=== PATIENT | male | born 1990 | race American Indian/Alaskan Native ===

== ENCOUNTER 2017-01-25 14:52 | Emergency (ER) | payer OTHER ==
[2017-01-25 15:01] VITALS: BP 142/90
[2017-01-25 16:17] LABS: Bilirubin,Urine NEG (Negative); Blood,Urine NEG (Negative); Ketones,Urine NEG (Negative); Leukocyte Esterase,Urine LG (Negative); Mucus,Urine FEW /HPF; Nitrite,Urine NEG (Negative); Protein,Urine <15 mg/dL mg/dL (Negative); Urobilinogen,Urine < 2.0 mg/dL (<2.0)
[2017-01-25 16:19] LABS: WBC,Urine > 182.0 /HPF (0.0-6.0)
[2017-01-25] MEDS ORDERED: XYLOCAINE 1% MPF 5 mL INFILTRATI ONE (17:33)
[2017-01-25] MEDS ORDERED: ROCEPHIN IM ONE (17:33)
[2017-01-25] MEDS ORDERED: ZITHROMAX PO ONE (17:33)
--- NOTE | 2017-01-25 17:59 | Emergency Department Report ---
Entered by JOSIAS LACKEY, acting as scribe for NATY JONES NP. ED Male HPI - General Chief complaint: Urogenital-Male Stated complaint: STD TESTING Time Seen by Provider: 01/25/17 17:28 Source: patient Mode of arrival: Ambulatory Limitations: No Limitations - History of Present Illness Initial comments: Patient is a 26 y.o. male who presents to the ED for evaluation of a two day hx of persistent, yellowish penile discharge with associated dysuria. Patient denies fever, chills, sore throat, abdominal pain, or N/V. He additionally reports recent unprotected sex. MD Complaint: penile discharge, dysuria -: days(s) (four day hx) Location: penis Radiation: none Severity scale (0 -10): 5 Consistency: constant Improves with: none Worsens with: urination discharge (penile discharge), dysuria. denies: swelling, mass, rash, urinary retention, blood in urine, fever, nausea/vomiting, incontinence - Related Data Sexually active: Yes (hx of recent unprotected sex) Allergies Allergy/AdvReac Type Severity Reaction Status Date / Time No Known Allergies Allergy Unverified 01/25/17 15:02 ED Review of Systems Comment: All other systems reviewed and negative Constitutional: denies: chills, diaphoresis, fever, malaise Eyes: denies: eye pain, vision change ENT: denies: ear pain, throat pain Respiratory: denies: cough, shortness of breath, wheezing Cardiovascular: denies: chest pain, palpitations Gastrointestinal: denies: abdominal pain, nausea, vomiting, diarrhea, constipation, melena Genitourinary: dysuria, discharge (penile discharge). denies: urgency, frequency, hematuria, testicular pain, testicular mass Musculoskeletal: denies: back pain, joint swelling, arthralgia, myalgia Skin: denies: rash, lesions, change in color, pruritus Neurological: denies: headache, weakness, paresthesias, abnormal gait Psychiatric: denies: anxiety, depression ED Past Medical Hx - Past Medical History Previous Medical History?: No - Surgical History Past Surgical History?: No - Social History Smoking Status: Current Every Day Smoker Substance Use Type: Alcohol ED Physical Exam - General Limitations: No Limitations General appearance: alert, in no apparent distress - Head Head exam: Present: atraumatic, normocephalic, normal inspection - Eye Eye exam: Present: normal appearance, PERRL, EOMI. Absent: scleral icterus, conjunctival injection Pupils: Present: normal accommodation - ENT ENT exam: Present: normal exam, normal orophraynx, mucous membranes moist, TM's normal bilaterally, normal external ear exam, other (Mouth: Moist, no pharyngeal exudate or erythema. Uvula is midline and oral airway is patent. No facial swelling. No peritonsillar abscesses.) - Neck Neck exam: Present: normal inspection, full ROM. Absent: tenderness, meningismus, lymphadenopathy, thyromegaly - Respiratory Respiratory exam: Present: normal lung sounds bilaterally (CTAB. Normal work of breathing.). Absent: respiratory distress, wheezes, rales, rhonchi, accessory muscle use - Cardiovascular Cardiovascular Exam: Present: regular rate, normal rhythm, normal heart sounds. Absent: systolic murmur, diastolic murmur, rubs, gallop - GI/Abdominal GI/Abdominal exam: Present: soft. Absent: distended, tenderness, guarding, rebound, rigid - Rectal Rectal exam: Present: deferred - exam: Present: other (deferred) - Extremities Exam Extremities exam: Present: normal inspection, full ROM, normal capillary refill. Absent: tenderness - Back Exam Back exam: Present: normal inspection. Absent: CVA tenderness (R), CVA tenderness (L) - Neurological Exam Neurological exam: Present: alert, oriented X3, normal gait - Psychiatric Psychiatric exam: Present: normal affect, normal mood - Skin Skin exam: Present: warm, dry, intact, normal color. Absent: rash, cyanosis, diaphoretic ED Course Vital Signs 01/25/17 14:59 Temperature 98.6 F Pulse Rate 95 H Respiratory 18 Rate Blood Pressure 142/90 O2 Sat by Pulse 100 Oximetry - Reevaluation(s) Reevaluation #1: 01/25/17 17:55 PT aware of UA results. PT treated empirically for gc and ct while in ED. PT aware of dx and need for follow up with PCP and further STD testing. PT has no questions at this time. PT advised to refrain from sexual activity at this time. - Pulse Oximetry Interpretation Digit-Finger Initial Pulse Oximetry Readin Actions Taken: none ED Medical Decision Making - Differential Diagnosis gc, ct Critical Care Time: No ED Disposition Clinical Impression: Penile discharge, Risky sexual behavior Disposition: DC-01 TO HOME OR SELFCARE Is pt being admited?: No Does the pt Need Aspirin: No Condition: Stable Instructions: Chlamydia Infection (ED), Sexually Transmitted Diseases (ED), Safe Sex (ED), Sexually Transmitted Diseases in Adolescents (ED) Additional Instructions: No sex for the next 7 days Your sexual partners will need testing/ treatment Follow up with PCP or health dept for full panel STD testing Repeat your BP on follow up Referrals: [facility] [Outside] - 3-5 Days [facility] [Outside] - 3-5 Days MATILDE LOMBARDI MD [Staff Physician] - 3-5 Days Time of Disposition: 17:59 This documentation as recorded by the leslieibZIYAD landers KELLY,accurately reflects the service I personally performed and the decisions made by ,NATY JONES , [employer] PULLER.
== END 2017-01-25 18:14 | disposition home or self-care (01) ==
LOC: ED 14:52
DX: R36.9 Urethral discharge, unspecified (principal); F17.200 Nicotine dependence, unspecified, uncomplicated
CPT/HCPCS: 81001; 87591; 96372; 99283; J0696

== ENCOUNTER 2017-02-22 21:59 | Emergency (ER) | payer OTHER ==
[2017-02-22 22:45] VITALS: BP 143/85
== END 2017-02-22 23:00 | disposition left against medical advice (07) ==
LOC: ED 21:59
DX: Z53.21 Procedure and treatment not carried out due to patient leaving prior to being seen by health care provider (principal)

== ENCOUNTER 2018-02-21 14:31 | Emergency (ER) | payer OTHER ==
[2018-02-21 14:39] VITALS: BP 161/85
--- NOTE | 2018-02-21 15:20 | Emergency Department Report ---
ED Male HPI - General Chief complaint: Urogenital-Male Stated complaint: BURN WHEN URINE Time Seen by Provider: 02/21/18 14:59 Source: patient Mode of arrival: Ambulatory Limitations: No Limitations - History of Present Illness Initial comments: This 27-year-old -[place] male represents to the emergency room with dysuria and penile discharge for 1 week. Patient states he had recent exposure to Trichomonas. His partner called him 2 days ago and told him they were positive for Trichomonas. Patient is now requesting STD screening and an treatment. Patient denies fever, pelvic pain, flank pain, frequency, urgency, and testicular pain or swelling. MD Complaint: penile discharge, dysuria Onset/Timin -: week(s) Location: penis Radiation: none Severity: mild Severity scale (0 -10): 0 Quality: burning Consistency: intermittent Improves with: none Worsens with: urination new sexual partner discharge, dysuria. denies: swelling, mass, rash, urinary retention, blood in urine, fever, nausea/vomiting, incontinence - Related Data Sexually active: Yes Allergies Allergy/AdvReac Type Severity Reaction Status Date / Time No Known Allergies Allergy Unverified 01/25/17 15:02 ED Review of Systems ROS: Stated complaint: BURN WHEN URINE Other details as noted in HPI Constitutional: denies: chills, fever Respiratory: denies: cough, shortness of breath, wheezing Cardiovascular: denies: chest pain, palpitations Gastrointestinal: denies: abdominal pain, nausea, vomiting, diarrhea Genitourinary: dysuria, discharge. denies: urgency, frequency, hematuria, testicular pain, testicular mass Musculoskeletal: denies: back pain, joint swelling, arthralgia Neurological: denies: headache, weakness, paresthesias Psychiatric: denies: anxiety, depression ED Past Medical Hx - Past Medical History Previous Medical History?: No - Surgical History Hx Appendectomy: Yes - Social History Smoking Status: Current Every Day Smoker Substance Use Type: Alcohol ED Physical Exam - General Limitations: No Limitations General appearance: alert, in no apparent distress, obese - Respiratory Respiratory exam: Present: normal lung sounds bilaterally. Absent: respiratory distress - Cardiovascular Cardiovascular Exam: Present: regular rate, normal rhythm. Absent: systolic murmur, diastolic murmur, rubs, gallop - GI/Abdominal GI/Abdominal exam: Present: soft, normal bowel sounds. Absent: distended, tenderness, guarding, rebound, rigid, organomegaly, mass - Back Exam Back exam: Present: normal inspection. Absent: CVA tenderness (R), CVA tenderness (L) - Neurological Exam Neurological exam: Present: alert, oriented X3 - Psychiatric Psychiatric exam: Present: normal affect, normal mood - Skin Skin exam: Present: warm, dry, intact, normal color. Absent: rash ED Course Vital Signs 02/21/18 02/21/18 14:38 16:30 Temperature 98.3 F Pulse Rate 111 H 84 Respiratory 18 Rate Blood Pressure 161/85 O2 Sat by Pulse 98 Oximetry ED Medical Decision Making - Medical Decision Making This is a 27-year-old male who presents with dysuria and penile discharge for 1 week. Patient was examined by me. Vitals are stable and in no acute distress. I ordered urinalysis and GC, patient is unable to leave sample. Empirically treated with Rocephin 250 mg IM, metronidazole 2 g by mouth, and azithromycin 1 g by mouth. Discharged home in stable condition. Discussed prevention options. F/U with PCP or Health Department. Critical care attestation.: If time is entered above; I have spent that time in minutes in the direct care of this critically ill patient, excluding procedure time. ED Disposition Clinical Impression: Exposure to STD, Penile discharge, Dysuria Disposition: DC-01 TO HOME OR SELFCARE Is pt being admited?: No Does the pt Need Aspirin: No Condition: Stable Instructions: Sexually Transmitted Diseases (ED), Safe Sex (ED) Additional Instructions: Avoid drinking alcohol while taking antibiotics and for 24 hours after completion. Continue safe sexual intercourse. Follow up with Primary Care Provider or health department. Referrals: [facility] [Outside] - 3-5 Days [facility] [Outside] - 3-5 Days [facility] [Outside] - 3-5 Days Time of Disposition: 15:23 Print Language: CROATIAN
[2018-02-21] MEDS ORDERED: FLAGYL PO ONE (15:28)
[2018-02-21] MEDS ORDERED: ZITHROMAX PO ONE (15:28)
[2018-02-21] MEDS ORDERED: XYLOCAINE 1% MPF 5 mL INFILTRATI ONE (15:28)
[2018-02-21] MEDS ORDERED: ROCEPHIN IM ONE (15:28)
== END 2018-02-21 16:48 | disposition home or self-care (01) ==
LOC: ED 14:31
DX: R30.0 Dysuria (principal); R36.9 Urethral discharge, unspecified; Z20.2 Contact with and (suspected) exposure to infections with a predominantly sexual mode of transmission; F17.200 Nicotine dependence, unspecified, uncomplicated; Z90.49 Acquired absence of other specified parts of digestive tract
CPT/HCPCS: 96372; 99282; J0696

== ENCOUNTER 2020-11-07 19:35 | Emergency (ER) | payer OTHER | END 2020-11-07 23:01 | disposition left against medical advice (07) | LOC: ED 19:35 ==